=== PATIENT | male | born 1955 | race Caucasian/White ===

== ENCOUNTER 2025-08-10 19:23 | Emergency (ER) | payer OTHER ==
[~2025-08-10] VITALS: Ht 165.1 cm; Wt 70.0 kg
[~2025-08-10 19:23] MED LIST: ASPI-1497 PO; ATOR40TA70 PO; CLON0.1T PO; FAMO-135 PO; KEPPSOL PO; LEVO750T68 MT; METO25TA6 PO; MIDO5TAB4 PO; MULT-1146 PO; PHEN100C4 PO; TOPUD PO; VALP250C3 PO; VITA250012 PO
[2025-08-10 19:28] VITALS: TEMP 37.1
[2025-08-10 20:18] LABS: BASOPHILS % 0.4 % (0.0-2.0); EOSINOPHILS % 2.7 % (0.0-5.0); HEMATOCRIT. 33.8 % (42.0-52.0); HEMOGLOBIN. 11.1 g/dL (14.0-18.0); LYMPHOCYTES % 29.2 % (20.0-50.0); MEAN PLATELET VOLUME 8.6 fl (7.4-10.4); MONOCYTES % 10.3 % (2.0-8.0); NEUTROPHILS % 57.4 % (40.0-76.0); PLATELET 462 x1000/uL (130-400); RED BLOOD CELL COUNT 3.76 mill/uL (4.7-6.1); RED CELL DISTRIBUTION WIDTH 15.4 % (11.6-14.6)
[2025-08-10 20:31] LABS: CREATININE 0.8 mg/dL (0.6-1.3)
[2025-08-10 20:32] LABS: UREA NITROGEN BLOOD 11 mg/dL (9-23)
[2025-08-10 20:33] LABS: TROPONIN I HIGH SENSITIVITY < 4 ng/L (3.0-53)
[2025-08-10] MEDS: PREDNISONE 20MG TABLET PO ONE (20:36)
[2025-08-10 21:08] VITALS: PULSE 83; RESP 20; O2SAT 97
[2025-08-10] MEDS: IPRATROPIUM/ALBUTEROL 0.5-3(2.5)MG/3ML NEB HHN ONE (21:08)
[2025-08-10] MEDS ORDERED: P50 MT (22:40)
[2025-08-10] MEDS ORDERED: ALBU90AE INH (22:40)
[2025-08-10] MEDS ORDERED: AZIT250T12 MT (22:40)
[2025-08-10] MEDS ORDERED: TOPUD MT (22:40)
[2025-08-10 23:52] VITALS: BP 119/74; PULSE 102; RESP 16; O2SAT 96
== END 2025-08-11 00:28 | disposition home or self-care (01) ==
LOC: ER 19:23 → CMPBEDREQ 08-11 07:42
DX: J44.1 Chronic obstructive pulmonary disease with (acute) exacerbation (principal); F03.90 Unspecified dementia, unspecified severity, without behavioral disturbance, psychotic disturbance, mood disturbance, and anxiety; I10 Essential (primary) hypertension; Z79.82 Long term (current) use of aspirin; Z79.899 Other long term (current) drug therapy
CPT/HCPCS: 80048; 83880; 85025; 84484; 36415; 71045; 94640; 93005; 99285; J7512; Z7610 ×4; 94070

== ENCOUNTER 2025-09-30 13:32 | Inpatient (IN) | payer MEDICAID, OTHER ==
[~2025-09-30] VITALS: Ht 165.1 cm; Wt 51.3 kg
[~2025-09-30 13:32] MED LIST changes: +ALBU90AE INH; +AZIT250T12 MT; +P50 MT; +TOPUD MT
[2025-09-30 15:00] LABS: BASOPHILS % 0.4 % (0.0-2.0); EOSINOPHILS % 3.4 % (0.0-5.0); HEMATOCRIT. 41.6 % (42.0-52.0); HEMOGLOBIN. 13.8 g/dL (14.0-18.0); LYMPHOCYTES % 46.8 % (20.0-50.0); MEAN PLATELET VOLUME 8.6 fl (7.4-10.4); MONOCYTES % 10.2 % (2.0-8.0); NEUTROPHILS % 39.2 % (40.0-76.0); PLATELET 173 x1000/uL (130-400); RED BLOOD CELL COUNT 4.59 mill/uL (4.7-6.1); RED CELL DISTRIBUTION WIDTH 15.5 % (11.6-14.6)
[2025-09-30 15:14] LABS: CREATININE 0.8 mg/dL (0.6-1.3)
[2025-09-30 15:15] LABS: PROTEIN TOTAL 7.4 g/dL (6.0-8.3); TROPONIN I HIGH SENSITIVITY < 4 ng/L (3.0-53); UREA NITROGEN BLOOD 11 mg/dL (9-23)
[2025-09-30 15:16] LABS: ASPARTATE AMINOTRANSFERASE 26 IU/L (<34); BILIRUBIN DIRECT 0.1 mg/dL (<=3.0)
[2025-09-30 15:17] LABS: BILIRUBIN TOTAL 0.3 mg/dL (0.1-1.0)
[2025-09-30] MEDS: HALOPERIDOL LACTATE 5MG/ML VIAL IM ONE (15:49)
[2025-09-30] MEDS ORDERED: MIDAZOLAM HCL 2 MG/2 ML VIAL IV ONE (16:30)
[2025-09-30 16:45] VITALS: O2SAT 97
[2025-09-30] MEDS: MIDAZOLAM HCL 2 MG/2 ML VIAL IM ONE (16:45)
[2025-09-30 17:09] LABS: TROPONIN I HIGH SENSITIVITY < 4 ng/L (3.0-53)
[2025-09-30] MEDS ORDERED: IPRATROPIUM/ALBUTEROL 0.5-3(2.5)MG/3ML NEB HHN PRN (20:30)
[2025-09-30] MEDS ORDERED: LORAZEPAM 2MG/ML UD SYRINGE IV PRN (20:30)
[2025-09-30] MEDS ORDERED: ACETAMINOPHEN 325MG TABLET PO PRN ×2 (20:30)
[2025-09-30] MEDS ORDERED: DOCUSATE SODIUM 100MG CAPSULE PO PRN (20:30)
[2025-09-30] MEDS ORDERED: ONDANSETRON HCL 4MG/2ML INJ IV PRN (20:30)
[2025-09-30] MEDS ORDERED: GUAIFENESIN 200MG/10ML SUGAR FREE UDC PO PRN (20:30)
[2025-09-30] MEDS ORDERED: CLONIDINE 0.1MG TABLET PO PRN (20:30)
[2025-09-30] MEDS: ENOXAPARIN 40MG/0.4ML SYR SUBCUT SCH (22:26)
[2025-09-30] MEDS: LEVETIRACETAM 1000MG PREMIX 100 ML IV SCH (22:26)
[2025-09-30] MEDS: PHENYTOIN SODIUM 100MG/2ML VIAL IV SCH (22:26)
[2025-09-30] MEDS: VALPROATE SODIUM 250MG/5ML UDC PO SCH (22:29)
[2025-10-01] VITALS (7 sets, daily range): BP systolic 127–141; BP diastolic 62–82; PULSE 61–108; RESP 18–20; TEMP 36.1–36.7; O2SAT 92–97
[2025-10-01 01:01] LABS: CLARITY URINE CLOUDY (CLEAR); COLOR URINE YELLOW (YELLOW); GLUCOSE URINE NEGATIVE (NEGATIVE); KETONES URINE NEGATIVE (NEGATIVE); LEUKOCYTE ESTERASE URINE 3+ (NEGATIVE); NITRITE URINE NEGATIVE (NEGATIVE); OCCULT BLOOD URINE TRACE (NEGATIVE); PH URINE 7.5 (4.5-8.0); PROTEIN URINE NEGATIVE (NEGATIVE); SPECIFIC GRAVITY URINE 1.008 (1.005-1.030); UROBILINOGEN URINE 0.2 E.U./dL (0.2-1.0)
[2025-10-01 01:06] LABS: *AMPHETAMINES SCREEN URINE NEGATIVE (NEGATIVE); *BARBITURATES SCREEN URINE NEGATIVE (NEGATIVE); *BENZODIAZEPINES SCREEN URINE PRESUMPTIVE POSITIVE (NEGATIVE); *COCAINE SCREEN URINE NEGATIVE (NEGATIVE); CANNABINOID URINE SCREEN NEGATIVE (NEGATIVE); ECSTASY MDMA SCREEN URINE NEGATIVE (NEGATIVE); METHADONE URINE SCREEN NEGATIVE (NEGATIVE); OPIATES URINE SCREEN NEGATIVE (NEGATIVE); PHENCYCLIDINE URINE SCREEN NEGATIVE (NEGATIVE)
[2025-10-01 01:13] LABS: BACTERIA URINE 3+; SQUAMOUS EPITHELIAL CELL URINE RARE /lpf (RARE/1+)
[2025-10-01] MEDS ORDERED: ZOLPIDEM TARTRATE 5MG TABLET PO NR (01:15)
[2025-10-01 03:00] LABS: VALPROIC ACID 72.7 ug/mL (50-100)
[2025-10-01] MEDS: DEXT 5%/0.9% NACL 1,000 ML IV SCH (03:27)
[2025-10-01 03:33] LABS: PHENYTOIN 29.7 ug/mL (10-20)
[2025-10-01] MEDS: CEFTRIAXONE 1GM/50ML 50 ML IV SCH (05:35)
[2025-10-01 11:54] LABS: CLARITY URINE CLOUDY (CLEAR); COLOR URINE YELLOW (YELLOW); GLUCOSE URINE NEGATIVE (NEGATIVE); KETONES URINE NEGATIVE (NEGATIVE); LEUKOCYTE ESTERASE URINE 2+ (NEGATIVE); NITRITE URINE NEGATIVE (NEGATIVE); OCCULT BLOOD URINE TRACE (NEGATIVE); PH URINE 7.5 (4.5-8.0); PROTEIN URINE NEGATIVE (NEGATIVE); SPECIFIC GRAVITY URINE 1.009 (1.005-1.030); UROBILINOGEN URINE 0.2 E.U./dL (0.2-1.0)
[2025-10-01 13:18] LABS: BACTERIA URINE 4+; SQUAMOUS EPITHELIAL CELL URINE RARE /lpf (RARE/1+)
[2025-10-01 13:19] LABS: WBC URINE 25-50 /hpf (0-2)
[2025-10-01 13:20] LABS: RBC URINE NONE SEEN /hpf (0-2)
[2025-10-01] MEDS: PANTOPRAZOLE SODIUM 40 MG/VIAL IV SCH (19:00)
[2025-10-01] MEDS: ATORVASTATIN CALCIUM 40MG TABLET PO SCH (21:40)
[2025-10-01 22:22] LABS: BASOPHILS % 0.2 % (0.0-2.0); EOSINOPHILS % 3.6 % (0.0-5.0); HEMATOCRIT. 44.1 % (42.0-52.0); HEMOGLOBIN. 14.5 g/dL (14.0-18.0); LYMPHOCYTES % 39.9 % (20.0-50.0); MEAN PLATELET VOLUME 9.3 fl (7.4-10.4); MONOCYTES % 12.5 % (2.0-8.0); NEUTROPHILS % 43.8 % (40.0-76.0); PLATELET 189 x1000/uL (130-400); RED BLOOD CELL COUNT 4.84 mill/uL (4.7-6.1); RED CELL DISTRIBUTION WIDTH 15.6 % (11.6-14.6)
[2025-10-01 22:42] LABS: CREATININE 0.8 mg/dL (0.6-1.3)
[2025-10-01 22:43] LABS: TRIGLYCERIDE 140 mg/dL (0-150); UREA NITROGEN BLOOD 6 mg/dL (9-23)
[2025-10-01 22:44] LABS: LDL CHOLESTEROL 104 mg/dL (5-100)
[2025-10-01 22:47] LABS: FOLIC ACID (FOLATE) SERUM 4.27 ng/mL (>5.38); T4 FREE 0.78 ng/dL (0.89-1.76); VITAMIN B12 SERUM 460 pg/mL (211-911)
[2025-10-02] VITALS: BP 126/79; PULSE 94; RESP 18; TEMP 36.7; O2SAT 96
[2025-10-02 04:00] VITALS: BP 130/88; PULSE 96; RESP 18; TEMP 36.4; O2SAT 98
[2025-10-02 08:00] VITALS: BP 129/79; PULSE 100; RESP 19; TEMP 36.4; O2SAT 100
[2025-10-02 12:00] VITALS: BP 130/82; PULSE 100; RESP 20; TEMP 36.5; O2SAT 97
[2025-10-02] MEDS: FOLIC ACID 1MG TABLET PO SCH (13:02)
[2025-10-02 16:00] VITALS: BP 109/68; PULSE 100; RESP 19; TEMP 36.7; O2SAT 97
[2025-10-02 20:00] VITALS: BP 110/70; PULSE 102; RESP 19; TEMP 36.8; O2SAT 94
[2025-10-03] VITALS: BP 110/75; PULSE 97; RESP 18; TEMP 36.3; O2SAT 96
[2025-10-03 04:00] VITALS: BP 113/73; PULSE 94; RESP 20; TEMP 36.4; O2SAT 97
[2025-10-03 12:00] VITALS: BP 121/85; PULSE 96; RESP 18; TEMP 36.6; O2SAT 100
[2025-10-03 16:00] VITALS: BP 109/76; PULSE 90; RESP 18; TEMP 36.4; O2SAT 100
[2025-10-03 20:00] VITALS: BP 112/87; PULSE 86; RESP 18; TEMP 36.4; O2SAT 90
[2025-10-04] VITALS: BP 122/71; PULSE 88; RESP 18; TEMP 36.5; O2SAT 98
[2025-10-04 04:00] VITALS: BP 112/72; PULSE 90; RESP 18; TEMP 36.6; O2SAT 98
[2025-10-04 08:00] VITALS: BP 131/85; PULSE 90; RESP 17; TEMP 36.5; O2SAT 97
[2025-10-04] MEDS: LORAZEPAM 2MG/ML UD SYRINGE IV PRN (10:03)
[2025-10-04] MEDS ORDERED: MEROPENEM 1,000 MG in SODIUM CHLORIDE 0.9% 100 ML IV SCH (11:30)
[2025-10-04 12:00] VITALS: BP 140/68; PULSE 101; RESP 18; TEMP 36.3; O2SAT 98
[2025-10-04] MEDS: MEROPENEM 1G/100ML 100 ML IV SCH (12:38)
[2025-10-04 16:00] VITALS: BP 103/69; PULSE 85; RESP 17; TEMP 36.4; O2SAT 98
[2025-10-04 20:00] VITALS: BP 120/79; PULSE 101; RESP 17; TEMP 36.4; O2SAT 98
[2025-10-05] VITALS: BP 107/73; PULSE 95; RESP 18; TEMP 36.4; O2SAT 99
[2025-10-05 04:00] VITALS: BP 123/73; PULSE 86; RESP 18; TEMP 36.3; O2SAT 100
[2025-10-05 08:00] VITALS: BP 132/80; PULSE 106; RESP 18; TEMP 37.1; O2SAT 98
[2025-10-05] MEDS: FAMOTIDINE 20MG/2ML VIAL IV SCH (10:11)
[2025-10-05 12:00] VITALS: BP 132/80; PULSE 106; RESP 18; TEMP 37.1; O2SAT 98
[2025-10-05 16:00] VITALS: BP 128/79; PULSE 100; RESP 14; TEMP 36.7; O2SAT 96
[2025-10-05] MEDS ORDERED: NITR-87 MT (16:07)
[2025-10-05] MEDS ORDERED: LEVE1000 MT (16:09)
[2025-10-05] MEDS ORDERED: DIVA-18 MT (16:09)
[2025-10-05] MEDS: HALOPERIDOL LACTATE 5MG/ML VIAL IM PRN (16:18)
[2025-10-05 20:00] VITALS: BP 137/77; PULSE 108; RESP 19; TEMP 36.5; O2SAT 95
[2025-10-05] MEDS: NITROFURANTOIN 100MG M/M CAPSULE PO SCH (21:04)
[2025-10-06] VITALS (10 sets, daily range): BP systolic 86–128; BP diastolic 61–89; PULSE 101–126; RESP 12–19; TEMP 36.5–37.7; O2SAT 99–100
[2025-10-06] MEDS: LORAZEPAM 2MG/ML UD SYRINGE IM PRN (01:46)
[2025-10-06] MEDS: LORAZEPAM 2MG/ML UD SYRINGE IV PRN (02:00)
[2025-10-06] MEDS ORDERED: LEVETIRACETAM 1500MG PREMIX 100 ML IV SCH (02:15)
[2025-10-06] MEDS: LEVETIRACETAM 1500MG PREMIX 100 ML IV SCH ×2 (06:04→21:08)
[2025-10-06 10:36] LABS: BASOPHILS % 0.3 % (0.0-2.0); EOSINOPHILS % 4.1 % (0.0-5.0); HEMATOCRIT. 40.5 % (42.0-52.0); HEMOGLOBIN. 13.7 g/dL (14.0-18.0); LYMPHOCYTES % 32.6 % (20.0-50.0); MEAN PLATELET VOLUME 9.0 fl (7.4-10.4); MONOCYTES % 13.1 % (2.0-8.0); NEUTROPHILS % 49.9 % (40.0-76.0); PLATELET 195 x1000/uL (130-400); RED BLOOD CELL COUNT 4.48 mill/uL (4.7-6.1); RED CELL DISTRIBUTION WIDTH 15.6 % (11.6-14.6)
[2025-10-06 10:48] LABS: CREATININE 0.6 mg/dL (0.6-1.3); UREA NITROGEN BLOOD 9 mg/dL (9-23)
[2025-10-06 10:50] LABS: PHOSPHORUS 3.2 mg/dL (2.5-4.9)
[2025-10-06] MEDS: LEVETIRACETAM 500MG TABLET PO SCH (20:26)
[2025-10-06] MEDS ORDERED: LEVETIRACETAM 1,500MG in NACL 100ML PREMIX IV SCH (21:00)
[2025-10-06] MEDS: MAGNESIUM 2 G PREMIX 50 ML IV SCH (21:31)
[2025-10-06] MEDS: KCL 20MEQ/100ML PREMIX 100 ML IV SCH (22:30)
[2025-10-07] VITALS (8 sets, daily range): BP systolic 110–130; BP diastolic 65–82; PULSE 100–116; RESP 12–19; TEMP 35.9–36.7; O2SAT 95–100
[2025-10-07] MEDS ORDERED: IOHEXOL-350 100 ML BOTTLE ONE (04:38)
[2025-10-08] VITALS: BP 114/74; PULSE 98; RESP 18; TEMP 36.4; O2SAT 97
[2025-10-08 04:00] VITALS: BP 116/69; PULSE 93; RESP 18; TEMP 36.3; O2SAT 95
[2025-10-08 08:00] VITALS: BP 104/72; PULSE 87; RESP 15; TEMP 36.4; O2SAT 95
[2025-10-08 12:00] VITALS: BP 133/69; PULSE 49; RESP 18; TEMP 36.4; O2SAT 85
[2025-10-08] MEDS: LORAZEPAM 1MG TABLET PO PRN (12:19)
[2025-10-08 16:00] VITALS: BP 129/79; PULSE 47; RESP 18; TEMP 36.3; O2SAT 90
[2025-10-08 20:00] VITALS: BP 123/66; PULSE 94; RESP 17; TEMP 35.8; O2SAT 97
[2025-10-08] MEDS: RISPERIDONE 0.5MG TABLET PO SCH (20:24)
[2025-10-08] MEDS: LEVETIRACETAM 500MG TABLET PO SCH (20:24)
[2025-10-09] VITALS: BP 110/87; PULSE 52; RESP 17; TEMP 36.1; O2SAT 90
[2025-10-09 04:00] VITALS: BP 103/66; PULSE 100; RESP 17; TEMP 36.1; O2SAT 96
[2025-10-09 08:00] VITALS: BP 105/72; PULSE 105; RESP 19; TEMP 36.3; O2SAT 99
[2025-10-09 12:00] VITALS: BP 106/70; PULSE 109; RESP 19; TEMP 36.4; O2SAT 99
[2025-10-09] MEDS ORDERED: LEVE750T4 PO (12:32)
[2025-10-09 16:34] VITALS: BP 105/72; PULSE 105; RESP 19; TEMP 97.3
== END 2025-10-09 16:52 | DRG 463 ==
LOC: ER 13:32 → 8WST 16:08 → EDBEDREQ 16:42 → EDBEDREQTM 16:42 → ENRESERV 20:44 → 8EST 10-03 11:43 → 5EST 10-06 02:21 → 5WST 10-07 12:13
PROVIDERS: ADMIT Hospitalist; ATTEND Hospitalist
PROC: 4A10X4Z Monitoring of Central Nervous Electrical Activity, External Approach (ICD-10-PCS; principal; 2025-10-02)
DX: N30.90 Cystitis, unspecified without hematuria (principal); G92.8 Other toxic encephalopathy; Z78.1 Physical restraint status; B96.20 Unspecified Escherichia coli [E. coli] as the cause of diseases classified elsewhere; G40.909 Epilepsy, unspecified, not intractable, without status epilepticus; D64.9 Anemia, unspecified; I10 Essential (primary) hypertension; F03.90 Unspecified dementia, unspecified severity, without behavioral disturbance, psychotic disturbance, mood disturbance, and anxiety; Z16.12 Extended spectrum beta lactamase (ESBL) resistance; F41.9 Anxiety disorder, unspecified; M79.601 Pain in right arm; M79.602 Pain in left arm; T42.0X5A Adverse effect of hydantoin derivatives, initial encounter; Z99.3 Dependence on wheelchair; E78.5 Hyperlipidemia, unspecified; Z86.73 Personal history of transient ischemic attack (TIA), and cerebral infarction without residual deficits; Y92.89 Other specified places as the place of occurrence of the external cause; Z79.899 Other long term (current) drug therapy; Z79.82 Long term (current) use of aspirin
CPT/HCPCS: 36415; 70496; 70498; 71045; 80048; 80061; 80076; 80165; 80185; 80305; 81003; 82542; 82550; 82607; 82728; 82746; 82962; 83540; 83550; 83605; 83735; 84100; 84145; 84439; 84443; 84484; 85025; 87077; 87186; 93005; 95816; 96372; 97162; 97166; 99285; A4606; J0696; J1165; J1308; J1630; J1650; J1953; J2060; J2185; J2250; J2470; J3475; J3480; Q9967